=== PATIENT | male | born 1985 | race Caucasian/White ===

== ENCOUNTER → 2020-09-14 09:55 | Outpatient (CLI) | payer OTHER, SELFPAY ==
[2020-09-14 12:32] LABS: COVID19 -Nasal RAPID Negative (Negative)
== END ==
PROVIDERS: Visit Provider Student in an Organized Health Care Education/Training Program
DX: Z20.822 Contact with and (suspected) exposure to COVID-19 (principal)
CPT/HCPCS: 87635

== ENCOUNTER → 2020-09-16 13:11 | Outpatient (CLI) | payer OTHER, SELFPAY ==
--- NOTE | 2020-09-16 | DI.NM.S_ITS ---
PROCEDURE: NM EXERCISE TREADMILL NON NUC COMPARISON: None. INDICATIONS: Palpitations FINDINGS: The patient exercised for 11 minutes and 6 seconds, reaching 12.8 METs, MICHELE +16%. Target heart rate achieved. Appropriate BP response to exercise. No angina during the study. No diagnostic ECG evidence of ischemia. IMPRESSION: Low risk, normal treadmill ECG only stress test. Mildly reduced exercise tolerance (12.8METs, MICHELE +16%). Target heart rate achieved. No angina and no ST-T changes during the study. Dictated by: Gab Savage MD on 09/16/2020 at 17:03 Approved by: Gab Savage MD on 09/16/2020 at 17:05
--- NOTE | 2020-09-16 | DI.ECHO.S_ITS ---
[facility] +---------+ : : [address] : [place] : : : : [id number] : : : : Phone: [phone]+ Echocardiogram Report + + :Name: ESTHELA RAO Study Date: 09/16/2020 Height: 68 in : :[facility] : Weight: 198 lb : : Gender: Male BSA: 2.0 m2 : :: 1985 Age: 34 yrs BP: 137/83 mmHg: :Reason For Study: Palpitations : :Ordering Physician: Pamella : :Radha Perez Performed By: James Leggett : :Referring: PAMELLA PEREZ : + + Interpretation Summary The left ventricle is normal in size and wall thickness. The ejection fraction is estimated to be 60-65%. The right ventricle is normal in size and function. No significant valvular pathology seen. The IVC is of normal diameter and collapses greater than 50% with a sniff. This suggests a low right atrial pressure of 3 mm Hg. Procedure: A two-dimensional transthoracic echocardiogram with color flow and Doppler was performed. The study quality was technically adequate. There is no prior echocardiogram noted for this patient. The patient was in sinus rhythm with heart rates between 60-64 bpm during the exam. Left Ventricle: The left ventricle is normal in size and wall thickness. There is no thrombus. Left ventricular systolic function is normal. The ejection fraction is estimated to be 60-65%. There are no focal wall motion abnormalities. Diastolic parameters suggest probable normal left ventricular diastolic function and normal filling pressures. Right Ventricle: The right ventricle is normal in size and function. Atria: Both atria are normal in size. There is no Doppler evidence for an interatrial shunt. Mitral Valve: The mitral valve is normal in structure and function. There is no mitral regurgitation noted. Aortic Valve: The aortic valve is normal in structure and function. The aortic valve is trileaflet. There is no aortic valve stenosis. No aortic regurgitation is present. Tricuspid Valve: The tricuspid valve is normal in structure and function. The right ventricular systolic pressure is estimated to be at least 24 mmHg based on an estimated right atrial pressure of 3 mm Hg. There is trace tricuspid regurgitation. Pulmonic Valve: The pulmonic valve is normal in structure and function. There is no pulmonic valvular regurgitation. Great Vessels: The aortic root is normal size. The dimensions of the ascending aorta are normal. The IVC is of normal diameter and collapses greater than 50% with a sniff. This suggests a low right atrial pressure of 3 mm Hg. Pericardium/ Pleura There is no pericardial effusion. There is no pleural effusion. MMode/2D Measurements & Calculations LVIDd: 5.0 cm LVOT diam: 2.1 cm LVIDs: 3.0 cm Ao root diam: 3.1 cm FS: 38.7 % asc Aorta Diam: 2.8 cm IVSd: 0.88 cm LVPWd: 0.65 cm LV kovacs. diameter/BSA (cm/m^2): 2.4 LV sys. diameter/BSA (cm/m^2): 1.5 LA A2 area: 15.9 cm2 RA long axis: 5.1 cm LA A4 area: 17.4 cm2 RA area: 18.1 cm2 LA length (vol): 6.2 cm RA vol: 54.8 ml LA vol: 37.9 ml RA : 26.9 ml/m2 LA vol index: 18.6 ml/m2 TAPSE: 2.7 cm Doppler Measurements & Calculations Ao V2 max: 142.0 cm/sec LVOT Max Jonny: 114.0 cm/sec Ao V2 mean: 91.8 cm/sec LV V1 max P.2 mmHg Ao max P.1 mmHg LV V1 VTI: 23.1 cm Ao mean P.9 mmHg DUDLEY(I,D): 3.1 cm2 Ao V2 VTI: 26.0 cm DUDLEY(V,D): 2.8 cm2 sev ratio: 0.89 DUDLEY indexed to BSA (cm^2/m^2): 1.5 MV E max jonny: 89.2 cm/sec TR max jonny: 226.9 cm/sec MV A max jonny: 53.8 cm/sec TR max P.6 mmHg MV E/A: 1.7 PA pr(Accel): 13.9 mmHg Med Peak E' Jonny: 11.6 cm/sec E/E' med: 7.7 Lat Peak E' Jonny: 14.5 cm/sec E/E' lat: 6.1 E/e' average: 6.9 MV dec time: 0.26 sec SV(LVOT): 79.9 ml Reading Physician:11:35 AM
--- NOTE | 2020-09-16 15:43 | PM.TREADMILL ---
Cardiac Stress Test Report Referral & Results Date Patient Seen: 09/16/20 Time Patient Seen: 15:43 Requesting provider: Everton Michaels Indication: palpitations Rest ECG: Sinus rhythm Procedure Note: Standard [place] protocol, 11:06, 11.8 METS Reduced exercise capacity, MICHELE +16% Normal hemodynamic response to exercise No chest pain, anginal symptoms or anginal symptoms No significant ST changes at peak exercise No ectopy Impression: Normal exercise stress test Please note: Actual ECG tracings can be found in the PACS system.
== END ==
PROVIDERS: PCP Family Medicine; Referring Provider Internal Medicine Cardiovascular Disease; Visit Provider Internal Medicine Cardiovascular Disease
DX: R07.89 Other chest pain (principal); R00.2 Palpitations
CPT/HCPCS: 93017; 93306

== ENCOUNTER → 2021-09-08 14:09 | Outpatient (CLI) | payer OTHER, SELFPAY ==
--- NOTE | 2021-09-08 | DI.ECHO.S_ITS ---
[facility]---------+ [facility] +---------+ : : [address] : [address] [place] : : : : [id number] : : : : Phone: [phone]+ Echocardiogram Report + + :Name: ESTHELA RAO Study Date: 09/08/2021 Height: 68 in : [id number] Weight: 190 lb : : Gender: Male BSA: 2.0 m2 : :: 1985 Age: 35 yrs BP: 137/85 mmHg: :Reason For Study: general medical examination : : Performed By: Pavithra Queen : :Referring: [email or web address] : + + Interpretation Summary The ejection fraction is estimated to be 60-65%. Diastolic parameters suggest probable normal left ventricular diastolic function and normal filling pressures. The right ventricle is normal in size and function. No significant valvular abnormalities. Unable to estimate PASP. Compared to the prior study dated 09/16/2020, no significant change. Procedure: A two-dimensional transthoracic echocardiogram with color flow and Doppler was performed. The study quality was technically adequate. Comparison is made with the echocardiogram of 09/16/2020. The patient was in normal sinus rhythm during the exam. Left Ventricle: The left ventricle appears normal in size, wall thickness, and systolic function without any focal wall motion abnormalities. The ejection fraction is estimated to be 60-65%. Diastolic parameters suggest probable normal left ventricular diastolic function and normal filling pressures. Right Ventricle: The right ventricle is normal in size and function. Atria: The left atrial size is normal. Chiari network (normal variant) is noted. Right atrial size is normal. There is no Doppler evidence for an interatrial shunt. Mitral Valve: The mitral valve is normal in structure and function. There is trace mitral regurgitation. Aortic Valve: The aortic valve is trileaflet. There is no aortic valve stenosis. No aortic regurgitation is present. Tricuspid Valve: The tricuspid valve is normal in structure and function. There is a trace or physiologic amount of tricuspid regurgitation. Pulmonary artery pressures cannot be estimated because of the lack of a measurable TR jet velocity but the IVC suggests a CVP of around 3 mmHg. Pulmonic Valve: The pulmonic valve is normal in structure and function. There is a trace or physiologic amount of pulmonic regurgitation. Great Vessels: The aortic root is normal size. The ascending aorta is normal in size. The aortic arch is normal in size. The pulmonary artery is normal size. The IVC is of normal diameter and collapses greater than 50% with a sniff. This suggests a low right atrial pressure of 3 mm Hg. Pericardium/ Pleura There is no pericardial effusion. There is no pleural effusion. MMode/2D Measurements & Calculations LVIDd: 5.1 cm LVOT diam: 2.3 cm LVIDs: 2.7 cm Ao root diam: 3.0 cm FS: 47.5 % asc Aorta Diam: 3.1 cm EPSS: 0.17 cm Ao Arch Diam (Prox Trans): 2.7 cm IVSd: 0.66 cm LVPWd: 0.53 cm LV kovacs. diameter/BSA (cm/m^2): 2.5 LV sys. diameter/BSA (cm/m^2): 1.3 LA A2 area: 20.6 cm2 RA long axis: 5.4 cm LA A4 area: 15.9 cm2 RA area: 21.1 cm2 LA length (vol): 5.8 cm RA vol: 70.1 ml LA vol: 47.6 ml RA : 35.1 ml/m2 LA vol index: 23.8 ml/m2 IVC diam: 2.1 cm RVD1 (basal): 4.3 cm TAPSE: 2.1 cm Doppler Measurements & Calculations Ao V2 max: 119.4 cm/sec LVOT Max Jonny: 107.3 cm/sec Ao V2 mean: 79.2 cm/sec LV V1 max P.6 mmHg Ao max P.7 mmHg LV V1 VTI: 21.2 cm Ao mean P.8 mmHg DUDLEY(I,D): 3.6 cm2 Ao V2 VTI: 23.3 cm DUDLEY(V,D): 3.6 cm2 sev ratio: 0.91 DUDLEY indexed to BSA (cm^2/m^2): 1.8 MV E max jonny: 80.0 cm/sec TR max jonny: 173.6 cm/sec MV A max jonny: 50.1 cm/sec TR max P.1 mmHg MV E/A: 1.6 Med Peak E' Jonny: 13.9 cm/sec E/E' med: 5.8 Lat Peak E' Jonny: 18.8 cm/sec E/E' lat: 4.3 E/e' average: 5.0 MV P1/2t: 55.1 msec MV P1/2t max jonny: 79.6 cm/sec SV(LVOT): 84.4 ml MVA(2t): 4.0 cm2 Reading Physician:05:32 PM
== END ==
PROVIDERS: PCP Family Medicine; Referring Provider Nurse Practitioner Family; Visit Provider Nurse Practitioner Family
DX: Z00.00 Encounter for general adult medical examination without abnormal findings (principal)
CPT/HCPCS: 93306

== ENCOUNTER → 2022-01-03 16:29 | Outpatient (CLI) | payer OTHER, SELFPAY ==
--- NOTE | 2022-01-03 17:10 | DI.MRI.S_ITS ---
PROCEDURE: MR HEAD/BRAIN WO/W CON INDICATIONS: Trigeminal Nueralgia TECHNIQUE: Noncontrast sagittal T1 spin echo, axial T2 fast spin echo, axial FLAIR, axial gradient echo, axial diffusion and ADC through the brain. Axial/sagittal/coronal 3-D CISS, thin-slice axial T1 spin echo with fat saturation through the skull base. After the administration of contrast, axial and coronal thin-slice T1 spin echo with fat saturation through the skull base, axial and coronal and sagittal T1 spin echo with fat saturation through the brain. COMPARISON: None. FINDINGS: Image quality: Excellent. Trigeminal nerves: In this patient with this given history, scrutiny is given to the trigeminal nerves. The trigeminal nerves demonstrate a normal appearance, without masses or abnormal enhancement seen along their courses, including within the Meckel's caves. CSF spaces: Ventricles are normal in size and shape. No extra-axial fluid collections. Basal cisterns are patent. Brain: No intracranial bleeds or mass effects. No abnormal intracranial enhancement. Diffusion weighted images show no acute ischemic insults. Myles-white matter interface is intact. Brainstem is normal. Normal intravascular flow voids are present. Skull and face: Calvarial marrow signal is normal. Orbits appear normal. Sinuses: Sinuses and mastoids appear clear. 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 IMPRESSION: Normal appearing trigeminal nerves, without masses or abnormal enhancement seen. Dictated by: Addison Cuellar M.D. on 01/03/2022 at 17:53 Approved by: Addison Cuellar M.D. on 01/03/2022 at 17:54
== END ==
PROVIDERS: PCP Family Medicine; Referring Provider Family Medicine; Visit Provider Family Medicine
DX: G50.0 Trigeminal neuralgia (principal)
CPT/HCPCS: 70553; A9579

== ENCOUNTER → 2022-01-17 16:05 | Outpatient (CLI) | payer OTHER, SELFPAY ==
--- NOTE | 2022-01-17 16:08 | DI.MRI.S_ITS ---
PROCEDURE: MR SHOULDER LT WO CON INDICATIONS: Lt. shoulder pain TECHNIQUE: Noncontrast oblique coronal T2 fast spin echo with fat saturation, oblique sagittal T1 spin echo and T2 fast spin echo with fat saturation, axial T1 spin echo and T2 fast spin echo with fat saturation through the shoulder. COMPARISON: None. FINDINGS: Image quality: Excellent. Rotator cuff: There is mild supraspinatus subscapularis tendinosis. The infraspinatus tendon appear intact. Sagittal images demonstrate no rotator cuff muscle atrophy. Bones and bursae: No bone marrow contusions or fractures. Mild acromioclavicular joint degeneration. The acromion demonstrates conventional anatomy, without an os acromiale. No pathologic subacromial-subdeltoid or subcoracoid bursal fluid is present. Capsule and soft tissues: Labrum appears intact. There is biceps tendinosis. Subchondral cyst formation is seen adjacent to the bicipital groove in humerus. Suspect small longitudinal tear of the intra-articular portion of the long head of the biceps tendon near the biceps anchor (series 7, image 7). The long head of the biceps tendon demonstrates normal. The rotator interval appears normal, without fibrosis. The coracohumeral ligament is normal in thickness. IMPRESSION: 1. Mild supraspinatus and subscapularis tendinosis. 2. Tendinosis of the long head of the biceps tendon. Suspect a small longitudinal tear of the long head of the biceps tendon near the biceps anchor. 3. Mild acromioclavicular joint degeneration. Dictated by: Manasa Manuel M.D. on 01/17/2022 at 17:40 Approved by: Manasa Manuel M.D. on 01/18/2022 at 8:37
== END ==
PROVIDERS: PCP Family Medicine; Referring Provider Student in an Organized Health Care Education/Training Program; Visit Provider Student in an Organized Health Care Education/Training Program
DX: S46.112A Strain of muscle, fascia and tendon of long head of biceps, left arm, initial encounter (principal); M19.012 Primary osteoarthritis, left shoulder; M25.512 Pain in left shoulder
CPT/HCPCS: 73221